=== PATIENT | male | born 1945 | race Caucasian/White ===

== ENCOUNTER → 2020-05-08 | Outpatient (CLI) | payer MEDICARE, OTHER ==
[~2020-05-08] MED LIST: CARAFATE 1 GM TA1 GM PO; FLOMAX0.4 MG PO; HYDROCODONE-AP1 EAC6 PO; LIVALO2 MG PO; LIVALO4 MG PO; PROSCAR 5MG TABL5 MG PO; XARELTO20 MG PO; ZOFRAN ODT4 MG PO
== END ==
LOC: M.CT 12:56
PROVIDERS: ATTEND Family Medicine
DX: K76.0 Fatty (change of) liver, not elsewhere classified (principal); K76.89 Other specified diseases of liver; N28.1 Cyst of kidney, acquired; K46.9 Unspecified abdominal hernia without obstruction or gangrene